=== PATIENT | female | born 2000 | race Caucasian/White ===

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

== ENCOUNTER 2020-10-23 11:12 | Emergency (ER) | payer OTHER ==
[~2020-10-23] VITALS: Ht 167.6 cm; Wt 102.2 kg
[~2020-10-23 11:12] MED LIST changes: +TRAMADOL HCL50 MG PO
--- OUTSIDE RECORDS SUMMARY | 2020-10-23 11:20 | XMS ---
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 Please contact [facility] for any mental health concerns.\T\nbsp; Ruben [phone] Michael [phone] Crisis Line [phone] E.D. VISIT COUNT (12 MO.) [address] [place] [address] TOTAL 1 NOTE: Visits indicate total known visits. ED/UCC VISIT TRACKING (12 MO.) 10/23/2020 11:12 [facility] [place] TYPE: Emergency COMPLAINT: - COUGH, SOB INPATIENT VISIT TRACKING (12 MO.) No inpatient visits to display in this time frame [email or web address]
== END 2020-10-23 13:59 | disposition home or self-care (01) ==
LOC: ED 11:12
DX: J06.9 Acute upper respiratory infection, unspecified (principal); Z20.822 Contact with and (suspected) exposure to COVID-19; Z79.899 Other long term (current) drug therapy
CPT/HCPCS: 87502; 99283; C9803; U0003

== ENCOUNTER 2020-10-27 20:32 | Inpatient (IN) | payer OTHER ==
[~2020-10-27] VITALS: Ht 167.6 cm; Wt 101.2 kg
--- NOTE | 2020-10-28 04:14 | PR ---
[facility] [address] [facility] [place], [place] [address] Signed Progress Notes IP Datetime Report Generated by CPN: 10/28/2020 04:14 PROGRESS NOTES: [id number] Impression: Normal Progression of Labor; Reassuring Heart Rate Procedures: Artificial ROM; Sterile Vag Exam Plan: Continue Present Management; Anticipate Vaginal Delivery Other Plans: Consider augmentation Informed Consent Obtain: Vaginal Delivery VITAL SIGNS: [id number] Vital Signs: Reviewed; Within Normal Limits EXAM: [id number] Dilatation: 8.5 Effacement: 90 Station: -2 Contractions: q3-4 min MEMBRANES: [id number] Comments: Pt seen and examined. Doing well. AROM performed and lower station noted. Will consider augmentation if unchanged at next check. All questions answered. Anticiapte soon FETUS A: [id number] FHR Baseline: 140 Variability: Moderate 6-25bpm Accelerations: 15X15 Decelerations: None Presentation: Vertex Comments on Fetus A: No evidence of metabolic acidosis FETUS B: [id number] Signing Physician: Silvia Hedrick DO Copies: ~ *Electronically Signed* 10/28/20 0414 SILVIA HEDRICK DO PATIENT NAME: GERSON ALY PROGRESS NOTE DATE OF : 99 PHYSICIAN: SILVIA HEDRICK DO RPT #: [id number] REPORT IS CONFIDENTIAL AND NOT TO BE RELEASED WITHOUT AUTHORIZATION
--- NOTE | 2020-10-28 04:56 | PR ---
[facility] [address] [facility] [place], [place] [address] Signed Progress Notes IP Datetime Report Generated by CPN: 10/28/2020 04:56 PROGRESS NOTES: [id number] Impression: Normal Progression of Labor; Reassuring Heart Rate Procedures: Sterile Vag Exam Plan: Continue Present Management Other Plans: Consider augmentation Informed Consent Obtain: Vaginal Delivery VITAL SIGNS: [id number] Vital Signs: Reviewed; Within Normal Limits EXAM: [id number] Dilatation: 8.5 Effacement: 95 Station: 0 Contractions: q3-4 min MEMBRANES: [id number] Comments: Pt reports signficiant increase in discomfort. Cervix slightly changed and pt requesting rebolus of epidural. Anesthesia notified. Will consider augmentation if unchanged at next check FETUS A: [id number] FHR Baseline: 140 Variability: Moderate 6-25bpm Accelerations: 15X15 Decelerations: None Presentation: Vertex Comments on Fetus A: No evidence of metabolic acidosis FETUS B: [id number] Signing Physician: Silvia Hedrick DO Copies: ~ *Electronically Signed* 10/28/20 0456 SILVIA HEDRICK DO PATIENT NAME: SHEEBAGERSON PROGRESS NOTE DATE OF : 99 PHYSICIAN: SILVIA HEDRICK DO RPT #: [id number] REPORT IS CONFIDENTIAL AND NOT TO BE RELEASED WITHOUT AUTHORIZATION
--- NOTE | 2020-10-29 07:58 | PR ---
[facility] [address] [facility] [place], [place] [address] Signed PP Progress Notes Datetime Report Generated by CPN: 10/29/2020 07:58 SUBJECTIVE: [id number] Pain: Within Normal Limits Nausea/Vomiting: Denies Flatus: Yes Bowel Movement: Yes Vital Signs: [id number] Vital Signs: Reviewed; Within Normal Limits Cardiovascular: Normal Respiratory: Normal Abdomen/Uterus: Normal Lochia: Normal Vulva/Perineum: Not Done Breasts: Not Done CVA Tenderness: Normal Extremities: Normal Incision: Not Applicable Progress: Normal Exam Comments: Fundus firm U-2 nontender. at the breast IMPRESSION/PLAN/PROCEDURES: [id number] Impression: Normal Progression Progress Notes: Pt seen and examined. Doing well. Ambulating, voiding, and tolerating full diet. Pain and lochia minimal. well. Desires d/c home today. 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 Will consider D/C home today vs tomorrow. Reviewed d/c instructions. All questions answered. Signing Physician: Silvia Hedrick DO Copies: ~ *Electronically Signed* 10/29/20 0758 SILVIA HEDRICK DO PATIENT NAME: GERSON ALY PROGRESS NOTE DATE OF : 99 PHYSICIAN: SILVIA HEDRICK DO RPT #: [id number] REPORT IS CONFIDENTIAL AND NOT TO BE RELEASED WITHOUT AUTHORIZATION
== END 2020-10-29 13:50 | disposition home or self-care (01) | DRG 806 ==
LOC: FBCO 20:32 → FBC 22:35
PROVIDERS: ADMIT Obstetrics & Gynecology; ATTEND Obstetrics & Gynecology
PROC: 10E0XZZ Delivery of Products of Conception, External Approach (ICD-10-PCS; principal; 2020-10-27)
PROC: 3E0R3BZ Introduction of Anesthetic Agent into Spinal Canal, Percutaneous Approach (ICD-10-PCS; 2020-10-27)
PROC: 00HU33Z Insertion of Infusion Device into Spinal Canal, Percutaneous Approach (ICD-10-PCS; 2020-10-27)
PROC: 0UQMXZZ Repair Vulva, External Approach (ICD-10-PCS; 2020-10-27)
DX: O42.02 Full-term premature rupture of membranes, onset of labor within 24 hours of rupture (principal); D62 Acute posthemorrhagic anemia; Z37.0 Single live birth; O99.324 Drug use complicating childbirth; O71.82 Other specified trauma to perineum and vulva; O69.81X0 Labor and delivery complicated by cord around neck, without compression, not applicable or unspecified; Z20.822 Contact with and (suspected) exposure to COVID-19; O90.81 Anemia of the puerperium; F12.90 Cannabis use, unspecified, uncomplicated; Z3A.37 37 weeks gestation of pregnancy; Z87.891 Personal history of nicotine dependence
CPT/HCPCS: 85027; A9270; C9803; J2001; J2405; J2540; J2590; J2795; J7121; U0003

== ENCOUNTER 2021-10-10 01:00 | Inpatient (IN) | payer OTHER ==
[~2021-10-10] VITALS: Ht 167.6 cm; Wt 98.0 kg
--- NOTE | 2021-10-10 03:50 | PR ---
[facility] [address] [place], [place] [address] Signed Progress Notes IP Datetime Report Generated by CPDomitila: 10/10/2021 03:50 PROGRESS NOTES: [id number] Impression: Normal Progression of Labor; Reassuring Heart Rate Procedures: Artificial ROM Plan: Continue Present Management; Anticipate Vaginal Delivery Informed Consent Obtain: Vaginal Delivery; Risks, Benefits and Alternatives Discussed VITAL SIGNS: [id number] Vital Signs: Reviewed; Within Normal Limits EXAM: [id number] Dilatation: 9.5 Effacement: 90 Station: -1 Contractions: q 1 - 2 min MEMBRANES: [id number] Comments: Pt seen and examined. Reporting signficant increase in pelvic pressure and some significant increase in pain w/ contractions. Pt pleading for AROM. On exam, pt now 9cm 100 +1. Reviewed GBS prophylaxis and risk of GBS sepsis with less than recommended prophylaxis time. Pt and I both feel that delivery is immenent and she would like to proceed with AROM. AROM performed for moderate amount clear fluid. Pt now anterior lip. Anticipate soon. FETUS A: [id number] FHR Baseline: 125 Variability: Moderate 6-25bpm Accelerations: 15X15 Decelerations: None FHR Category: Category I Presentation: Vertex Comments on Fetus A: No evidence of metabolic acidosis FETUS B: [id number] Signing Physician: Silvia Hedrick DO Copies: ~ *Electronically Signed* 10/10/21 0350 SILVIA HEDRICK DO PATIENT NAME: GERSON ALY PROGRESS NOTE DATE OF : 99 PHYSICIAN: SILVIA HEDRICK DO [facility] #: [phone] REPORT IS CONFIDENTIAL AND NOT TO BE RELEASED WITHOUT AUTHORIZATION
--- NOTE | 2021-10-11 09:56 | PR ---
[facility] [address] [place], [place] [address] Signed PP Progress Notes Datetime Report Generated by CPN: 10/11/2021 09:56 SUBJECTIVE: [id number] Pain: Within Normal Limits Nausea/Vomiting: Denies Flatus: Yes Vital Signs: [id number] Vital Signs: Reviewed Notable Details: On elevated bp this AM with repeat normal Cardiovascular: Normal Respiratory: Normal Abdomen/Uterus: Normal Lochia: Normal Vulva/Perineum: Not Done Breasts: Not Done CVA Tenderness: Normal Extremities: Normal Incision: Not Applicable Progress: Normal Exam Comments: Fundus firm U-2 nontender IMPRESSION/PLAN/PROCEDURES: [id number] Impression: Normal Progression Plan: Discharge Progress Notes: Pt seen and examined. Doing well. Ambulating, voiding, and tolerating full diet. Pain and lochia minimal. well. No fevers/chills or other concerns. Desires d/c home today. Reviewed d/c instructions in detail. Signing Physician: Silvia Hedrick DO Copies: ~ *Electronically Signed* 10/11/21 0956 SILVIA HEDRICK DO PATIENT NAME: GERSON ALY PROGRESS NOTE DATE OF : 99 PHYSICIAN: SILVIA HEDRICK DO RPT #: [id number] REPORT IS CONFIDENTIAL AND NOT TO BE RELEASED WITHOUT AUTHORIZATION
== END 2021-10-11 12:55 | disposition home or self-care (01) | DRG 807 ==
LOC: FBCO 01:00 → FBC 01:18
PROVIDERS: ADMIT Obstetrics & Gynecology; ATTEND Obstetrics & Gynecology
PROC: 10E0XZZ Delivery of Products of Conception, External Approach (ICD-10-PCS; principal; 2021-10-10)
PROC: 10907ZC Drainage of Amniotic Fluid, Therapeutic from Products of Conception, Via Natural or Artificial Opening (ICD-10-PCS; 2021-10-10)
PROC: 3E0R3BZ Introduction of Anesthetic Agent into Spinal Canal, Percutaneous Approach (ICD-10-PCS; 2021-10-10)
PROC: 00HU33Z Insertion of Infusion Device into Spinal Canal, Percutaneous Approach (ICD-10-PCS; 2021-10-10)
DX: O99.284 Endocrine, nutritional and metabolic diseases complicating childbirth (principal); Z37.0 Single live birth; O43.123 Velamentous insertion of umbilical cord, third trimester; Z3A.38 38 weeks gestation of pregnancy; Z86.16 Personal history of COVID-19; E03.9 Hypothyroidism, unspecified; O99.824 Streptococcus B carrier state complicating childbirth
CPT/HCPCS: 01960; 36415; 85027; 86850; 86900; 86901; A9270; J2001; J2540; J2590; J7121

== ENCOUNTER 2022-03-09 11:52 | Emergency (ER) | payer OTHER ==
[~2022-03-09] VITALS: Ht 182.9 cm; Wt 91.2 kg
[2022-03-09] MEDS ORDERED: PROZAC40 MG PO (12:02)
[2022-03-09] MEDS ORDERED: HYDROXYZINE HCL25 MG PO (12:03)
[2022-03-09] MEDS ORDERED: DICYCLOMINE HCL20 MG PO (13:09)
[2022-03-09] MEDS ORDERED: ONDANSETRON ODT4 MG PO (13:09)
== END 2022-03-09 13:25 | disposition home or self-care (01) ==
LOC: ED 11:52
DX: K52.9 Noninfective gastroenteritis and colitis, unspecified (principal)
CPT/HCPCS: 36415; 80053; 81003; 83690; 84703; 85025; 96361; 96374; 96375; 99284-25; J1885; J2405; J7030